=== PATIENT | male | born 1950 | race Caucasian/White ===

== ENCOUNTER → 2018-12-05 | Outpatient (CLI) | payer MEDICARE, OTHER ==
--- NOTE | 2018-12-05 11:29 | PCVCIMAG ---
APPROVED REPORT Imaging Protocol: Rest Tc-99m/Stress Tc-99m 1 day Study performed: 12/05/2018 09:27:06 Indication: Chest pain, Dyspnea Patient Location: Out-Patient Stress Nurse: Cortney Umaña RN NE Tech:Samantha Colesaad [facility] Ht: 5 ft 6 in Wt: 233 lbs BSA: 2.13 m2 HR: 83 bpm BP: 145/69 mmHg BMI: 37.60 Rhythm: Sinus Rhythm, T wave abnormalities Medical History Medical History: HTN, Hyperlipidemia Medications: Crestor, Losartan Allergies: No known drug allergies Cardiac Risk Factors: Age Pretest Chest Pain Characteristics: No chest pain Exercise History: Indeterminate Resting Data Rest SPECT myocardial perfusion imaging was performed in supine position 45 minutes following the intravenous injection of 13.8 mCi of Tc-99m Sestamibi. Time of rest injection: 0845 Date: 12/05/2018 Administration Route: IV Administration Site: Right Hand Exercise Stress At peak stress, the patient was injected intravenously with 45.1mCi of Tc-99m Sestamibi. Time of stress injection: Date: 12/05/2018 Administration Route: IV Administration Site: Right Hand Patient continued to exercise for 1.00 minute(s). Gated Stress SPECT was performed 30 minutes after stress injection. The images were gated to evaluate regional wall motion and calculate left ventricular ejection fraction. Stress Test Details Stress Test: Exercise stress testing was performed using a Tejinder protocol. HRMax Heart Rate (APMHR): 151 bpm Resting HR: 83 bpmTarget HR (85% APMHR): 128 bpm Max HR Achieved: 151 bpm % of APMHR: 100 Recovery HR: 97 bpm BP Resting BP: 145/69 mmHg Max BP: 160/69 mmHg Recovery BP: 161/68 mmHg ECG Resting ECG: Sinus Rhythm, T wave abnormalities Stress ECG: Sinus Tachycardia with marked ST abnormalities Maximum ST Deviation: 2 mm Arrhythmia: VPC's Recovery ECG: Sinus Rhythm, T wave abnormalities Clinical Reason for Termination: Maximal effort, Dyspnea Stress Symptoms: Dyspnea, Leg Fatigue Exercise duration: 5 min 16 sec Exercise capacity: 7.0 METs Overall Exercise Capacity for Age: Poor Angina Score: None Symptoms resolved during recovery. Stress ECG Conclusion 1. Subjectively abnormal with development of exertional dyspnea which was his clinical complaint 2. Presence of baseline ST segment abnormalities render shifts strictly noninterpretable 3. Decreased functional capacity Whitt Treadmill Score is -5.0 which is Moderate risk. Study Data Post stress, the left ventricular ejection was 79%.. SSS: 0 SRS: 0 SDS: 0 TID = 0.84. Perfusion There is a large area of severely reduced uptake in the entire segment of the inferior wall which is seen on the stress images as well as the resting images. This area thickens and moves normally and is most consistent with attenuation artifact. Wall Motion Normal left ventricular wall motion. Nuclear Conclusion ECG Findings: noninterpretable due to baseline abnormalities Clinical Findings: equivocal Nuclear Findings: negative for ischemia Exercise Capacity: reduced Left Ventricular Function: normal 1. Low risk study based on the absence of inducible ischemia although inferior photopenia may affect diagnostic accuracy 2. Post exercise left ventricle ejection fraction 79% with normal contractility <Conclusion> 1. Subjectively abnormal with development of exertional dyspnea which was his clinical complaint 2. Presence of baseline ST segment abnormalities render shifts strictly noninterpretable 3. Decreased functional capacity
--- NOTE | 2018-12-05 11:32 | PCVCIMAG ---
APPROVED REPORT Study performed: 12/05/2018 08:12:52 EXAM: Comprehensive 2D, Doppler, and color-flow Echocardiogram Patient Location: Echo lab Status: routine BSA: 2.13 HR: 84 bpmBP: 130/74 mmHg Rhythm: NSR Other Information Study Quality: Technically Difficult Risk Factors: Cardiac Risk Factors: HTN, Hyperlipidemia Indications Dyspnea Elevated calcium score 2D Dimensions IVSd: 13.60 (7-11mm)LVOT Diam: 22.58 (18-24mm) LVDd: 36.26 mm PWd: 12.41 (7-11mm)Ascending Ao: 33.14 (22-36mm) LVDs: 31.59 (25-40mm) Left Atrium: 27.37 (27-40mm) Aortic Root: 29.49 mm LV Single Plane 4CH: 62.55 % LV Single Plane 2CH: 61.11 % Biplane EF: 61.4 % Volumes Left Atrial Volume (Systole) Single Plane 4CH: 40.10 mLSingle Plane 2CH: 39.69 mL LA ESV Index: 19.00 mL/m2 Aortic Valve AoV Peak Henrik.: 1.51 m/s AO Peak Gr.: 9.08 mmHg Mitral Valve E/A Ratio: 1.1 MV Decel. Time: 230.25 ms MV E Max Henrik.: 1.02 m/s MV A Henrik.: 0.89 m/s IVRT: 83.04 ms TDI E/Lateral E': 14.57E/Medial E': 17.00 Medial E' Henrik.: 0.06 m/s Lateral E' Henrik.: 0.07 m/s Pulmonary Valve PV Peak Gr.: 3.38 mmHg Pulmonary Vein P Vein S: 0.46 m/sP Vein A: 0.35 m/s P Vein D: 0.30 m/sP Vein A Dur.: 107.3 msec P Vein S/D Ratio: 1.53 Left Ventricle The left ventricle is normal size. There is normal LV segmental wall motion. Moderate concentric left ventricular hypertrophy. Mild increase velocity in the left ventricular outflow. Left ventricular systolic function is normal. The left ventricular ejection fraction is within the normal range. LVEF is 65%. Right Ventricle The right ventricle is normal size. The right ventricular systolic function is normal. Atria The left atrium size is normal. The right atrium size is normal. Aortic Valve The aortic valve is normal in structure. No aortic regurgitation is present. There is no aortic valvular stenosis. Mitral Valve The mitral valve is normal in structure. There is no mitral valve regurgitation noted. No evidence of mitral valve stenosis. Tricuspid Valve The tricuspid valve is normal in structure. There is no tricuspid valve regurgitation noted. Pulmonic Valve The pulmonary valve is normal in structure. There is no pulmonic valvular regurgitation. Great Vessels The aortic root is normal in size. IVC is normal in size and collapses >50% with inspiration. Pericardium There is no pericardial effusion. <Conclusion> The left ventricle is normal size. LVEF is 65%. The aortic valve is normal in structure. The mitral valve is normal in structure. The tricuspid valve is normal in structure. The pulmonary valve is normal in structure. There is no pericardial effusion.
== END | disposition home or self-care (01) ==
LOC: PCVCIMAG 08:09
PROVIDERS: ATTEND Internal Medicine
DX: Z01.812 Encounter for preprocedural laboratory examination (principal); I11.9 Hypertensive heart disease without heart failure; E78.5 Hyperlipidemia, unspecified; I25.10 Atherosclerotic heart disease of native coronary artery without angina pectoris; F17.200 Nicotine dependence, unspecified, uncomplicated; Z79.899 Other long term (current) drug therapy; Z72.89 Other problems related to lifestyle
CPT/HCPCS: 36415; 78452; 80061; 93017; 93306; A9500; G0463

== ENCOUNTER → 2019-01-28 | Outpatient (CLI) | payer MEDICARE, OTHER | END | disposition home or self-care (01) | LOC: PCVCCLINIC 10:10 | PROVIDERS: ATTEND Internal Medicine | DX: I25.10 Atherosclerotic heart disease of native coronary artery without angina pectoris (principal); I10 Essential (primary) hypertension; E78.5 Hyperlipidemia, unspecified; M54.9 Dorsalgia, unspecified; Z72.0 Tobacco use; Z79.899 Other long term (current) drug therapy | CPT/HCPCS: G0463 ==